=== PATIENT | male | born 1965 | race Caucasian/White ===

== ENCOUNTER 2021-04-19 04:51 | Emergency (ER) | payer OTHER ==
[2021-04-19 17:15] LABS: SARS-CoV-2 PCR by NAA Not Detected (NotDetected)
== END 2021-04-19 06:53 | disposition home or self-care (01) ==
LOC: CSHERS 04:51
DX: J06.9 Acute upper respiratory infection, unspecified (principal); Z20.822 Contact with and (suspected) exposure to COVID-19; I10 Essential (primary) hypertension; K21.9 Gastro-esophageal reflux disease without esophagitis; E03.9 Hypothyroidism, unspecified; Z79.82 Long term (current) use of aspirin; Z79.899 Other long term (current) drug therapy
CPT/HCPCS: 87804; 99283; U0003; U0005

== ENCOUNTER 2021-11-29 19:46 | Observation (INO) | payer OTHER ==
[2021-11-29 21:07] LABS: #Basophils 0.1 10x3/uL (0.0-0.2); #Eosinphils 0.2 10x3/uL (0.0-0.5); #Monocytes 0.6 10x3/uL (0.0-1.1); #Neutrophils 3.7 10x3/uL (1.5-8.4); %Basophils 0.9 % (0.0-2.0); %Eosinophils 2.8 % (0.0-6.0); %Lymphocytes 38.3 % (18.0-47.0); %Monocytes 7.8 % (0.0-10.0); %Neutrophils 50.1 % (40.0-75.0); Hemoglobin 15.7 g/dL (13.5-17.5); Mean Corpuscular HGB CONC 36.7 g/dL (32.0-36.0); Mean Corpuscular Hemoglobin 30.3 pg (27.0-33.0); Mean Corpuscular Volume 82.5 fl (81.2-95.1); Mean Platelet Volume 9.3 fl (7.4-10.4); Platelet Count 257 10x3/uL (150-450); RBC Distribution Width 12.8 % (11.5-14.5); Red Blood Cell (RBC) Count 5.19 10x6/uL (4.32-5.72); White Blood Cell (WBC) Count 7.4 10x3/uL (3.5-10.5)
[2021-11-29 21:18] LABS: Actual Bicarbonate (HCO3v) 23 mEq/L (22-28); Base Excess -0.6 mEq/L (-2.0 to +3.0); Calcium, Ionized (venous) 1.12 mmol/L (1.16-1.32); Chloride (VBG) 102 mmol/L (98-106); Critical Notified By: CP.PH; Hemoglobin (Hb) 15.9 g/dL (13.1-17.2); Potassium (VBG) 3.77 mmol/L (3.70-5.30); Puncture Site Other Site; Sodium 131.2 mmol/L (133-146); pH (venous) 7.43 (7.32-7.43)
[2021-11-29 21:22] LABS: ALT (SGPT) 95 U/L (8-55); AST (SGOT) 66 U/L (5-34); Albumin 4.5 g/dL (3.5-5.0); Alkaline Phosphatase 59 U/L (40-110); Anion Gap 15 mmol/L (10-20); BUN (Urea Nitrogen) 15 mg/dL (8.4-25.7); Bilirubin, Total 0.6 mg/dL (0.2-1.2); Calc. Creatinine Clearance 0 mL/min (70-130); Calcium 9.4 mg/dL (7.8-10.44); Carbon Dioxide 21 mmol/L (22-29); Chloride 104 mmol/L (98-107); Estimated GFR 102; Globulin 2.9 g/dL (2.4-3.5); Glucose 189 mg/dL (70-105); Potassium 3.8 mmol/L (3.5-5.1); Protein, Total 7.4 g/dL (6.0-8.3); Sodium 136 mmol/L (136-145)
[2021-11-29 21:47] LABS: Bilirubin Neg (Negative); Blood, Urine Negative (Negative); Clarity Clear (Clear); Glucose, Urine (Dipstick) Normal (Negative); Ketone, Urine Negative (Negative); Leukocyte Negative (Negative); Nitrite Negative (Negative); Protein, Urine (Dipstick) Negative (Neg-Trace); Urobilinogen Normal mg/dL (Less than 2)
[2021-11-29] MEDS ORDERED: Acetaminophen 325 MG TAB PO PRN (22:05)
[2021-11-29] MEDS ORDERED: Dextrose 5% in Water 1,000 ML IV PRN (22:05)
[2021-11-29] MEDS ORDERED: Dextrose 50% Abboject 50 ML SYRINGE SLOW IVP PRN (22:05)
[2021-11-29] MEDS ORDERED: Senokot S 8.6-50 MG TAB PO PRN (22:05)
[2021-11-29] MEDS ORDERED: Zolpidem Tartrate 5 MG TAB PO PRN (22:05)
[2021-11-29] MEDS ORDERED: Ondansetron PF 4 MG/2 ML Vial IVP PRN (22:05)
[2021-11-29] MEDS ORDERED: Guaifenesin DM 100-10/5 ML UDCUP PO PRN (22:05)
[2021-11-29] MEDS ORDERED: Nitroglycerin 0.4 MG TAB (25 Tab Bottle) SL PRN (22:05)
[2021-11-29] MEDS ORDERED: Calcium Carbonate 500 MG ChewTAB PO PRN (22:05)
[2021-11-29] MEDS ORDERED: metFORMIN 500 MG TAB PO SCH (22:15)
[2021-11-29] MEDS ORDERED: Potassium Chloride 20 MEQ TAB PO SCH (22:15)
[2021-11-29] MEDS ORDERED: Sodium Chloride 0.9% 500 ML IV SCH (22:30)
[2021-11-30 01:20] LABS: SARS-CoV-2 NAA Rapid Test Not Detected (NotDetected)
[2021-11-30 01:48] VITALS: BMI 32.2
[2021-11-30] MEDS ORDERED: HumaLOG 300 UNITS/3 ML VIAL SC PRN (05:45)
[2021-11-30 05:57] LABS: ALT (SGPT) 77 U/L (8-55); AST (SGOT) 49 U/L (5-34); Alkaline Phosphatase 55 U/L (40-110); Anion Gap 13 mmol/L (10-20); BUN (Urea Nitrogen) 15 mg/dL (8.4-25.7); Bilirubin, Total 0.5 mg/dL (0.2-1.2); CK (CPK) 599 U/L (30-200); Calc. Creatinine Clearance 110 mL/min (70-130); Calcium 9.3 mg/dL (7.8-10.44); Carbon Dioxide 23 mmol/L (22-29); Chloride 106 mmol/L (98-107); Estimated GFR 85; Globulin 2.5 g/dL (2.4-3.5); Glucose 305 mg/dL (70-105); Potassium 4.1 mmol/L (3.5-5.1); Protein, Total 6.5 g/dL (6.0-8.3); Sodium 138 mmol/L (136-145)
[2021-11-30] MEDS ORDERED: Levothyroxine 150 MCG TAB PO SCH (06:00)
[2021-11-30] MEDS ORDERED: metFORMIN 500 MG TAB PO SCH (08:00)
[2021-11-30 08:23] VITALS: BP 128/84; TEMP 96.5
[2021-11-30] MEDS ORDERED: Aspirin Chewable 81 MG TAB PO SCH (09:00)
[2021-11-30] MEDS ORDERED: Enoxaparin Sodium 40 MG/0.4 ML SYRINGE SC SCH (09:00)
[2021-11-30] MEDS ORDERED: Lisinopril 2.5 MG TAB PO SCH (09:00)
[2021-11-30] MEDS ORDERED: Gabapentin 100 MG CAP PO SCH (09:00)
[2021-11-30] MEDS ORDERED: Metoprolol Tartrate 25 MG TAB PO SCH (09:00)
[2021-11-30 12:26] LABS: Hemoglobin A1c 8.8 % (4.0-6.0)
== END 2021-11-30 11:50 | disposition home or self-care (01) ==
LOC: CSHERS 19:46 → CSHTELE 23:12
PROVIDERS: ADMIT Student in an Organized Health Care Education/Training Program; ATTEND Internal Medicine
DX: E11.40 Type 2 diabetes mellitus with diabetic neuropathy, unspecified (principal); R07.89 Other chest pain; I10 Essential (primary) hypertension; R06.02 Shortness of breath; M62.82 Rhabdomyolysis; R79.89 Other specified abnormal findings of blood chemistry; K21.9 Gastro-esophageal reflux disease without esophagitis; E03.9 Hypothyroidism, unspecified; E78.2 Mixed hyperlipidemia; Z20.822 Contact with and (suspected) exposure to COVID-19; Z79.84 Long term (current) use of oral hypoglycemic drugs; Z79.82 Long term (current) use of aspirin; Z79.899 Other long term (current) drug therapy; Z88.5 Allergy status to narcotic agent; Z88.8 Allergy status to other drugs, medicaments and biological substances
CPT/HCPCS: 36415; 36416; 71045; 80053; 81003; 82550; 82805; 83036; 83735; 83880; 84443; 84484; 85025; 93005; 93306; 96372; G0378; J1650; J7030; U0002

== ENCOUNTER 2022-05-05 21:03 | Emergency (ER) | payer SELFPAY ==
[2022-05-05 21:45] LABS: #Basophils 0.1 10x3/uL (0.0-0.2); #Eosinphils 0.3 10x3/uL (0.0-0.5); #Monocytes 0.6 10x3/uL (0.0-1.1); #Neutrophils 4.3 10x3/uL (1.5-8.4); %Basophils 0.6 % (0.0-2.0); %Eosinophils 3.3 % (0.0-6.0); %Monocytes 7.9 % (0.0-10.0); %Neutrophils 54.1 % (40.0-75.0); Hemoglobin 15.8 g/dL (13.5-17.5); Mean Corpuscular HGB CONC 35.7 g/dL (32.0-36.0); Mean Corpuscular Hemoglobin 28.8 pg (27.0-33.0); Mean Corpuscular Volume 80.7 fl (81.2-95.1); Mean Platelet Volume 9.4 fl (7.4-10.4); Platelet Count 243 10x3/uL (150-450); RBC Distribution Width 13.2 % (11.5-14.5); Red Blood Cell (RBC) Count 5.49 10x6/uL (4.32-5.72); White Blood Cell (WBC) Count 7.9 10x3/uL (3.5-10.5)
[2022-05-05 21:59] LABS: ALT (SGPT) 35 U/L (8-55); AST (SGOT) 25 U/L (5-34); Albumin 4.6 g/dL (3.5-5.0); Alkaline Phosphatase 49 U/L (40-110); Anion Gap 15 mmol/L (10-20); BUN (Urea Nitrogen) 15 mg/dL (8.4-25.7); Bilirubin, Total 0.5 mg/dL (0.2-1.2); Calc. Creatinine Clearance 0 mL/min (70-130); Carbon Dioxide 22 mmol/L (22-29); Chloride 107 mmol/L (98-107); Estimated GFR 104; Globulin 2.7 g/dL (2.4-3.5); Glucose 190 mg/dL (70-105); Magnesium 1.9 mg/dL (1.6-2.6); Potassium 3.9 mmol/L (3.5-5.1); Protein, Total 7.3 g/dL (6.0-8.3); Sodium 140 mmol/L (136-145)
== END 2022-05-05 23:13 | disposition home or self-care (01) ==
LOC: CSHERS 21:03
DX: R00.2 Palpitations (principal); R07.89 Other chest pain; E11.40 Type 2 diabetes mellitus with diabetic neuropathy, unspecified; I10 Essential (primary) hypertension
CPT/HCPCS: 36415; 71045; 80053; 83735; 84484; 85025; 93005

== ENCOUNTER 2023-07-07 02:17 | Emergency (ER) | payer SELFPAY | END 2023-07-07 03:45 | disposition home or self-care (01) | LOC: CSHERS 02:17 | DX: M19.071 Primary osteoarthritis, right ankle and foot (principal); E11.9 Type 2 diabetes mellitus without complications; E03.9 Hypothyroidism, unspecified; K21.9 Gastro-esophageal reflux disease without esophagitis; E78.00 Pure hypercholesterolemia, unspecified; I10 Essential (primary) hypertension; Z79.899 Other long term (current) drug therapy; Z79.84 Long term (current) use of oral hypoglycemic drugs ==